=== PATIENT | female | born 1985 | race Caucasian/White ===

== ENCOUNTER 2016-08-16 18:27 | Emergency (ER) | payer MEDICAID ==
[~2016-08-16] VITALS: Ht 170.2 cm; Wt 75.0 kg
[2016-08-16 18:29] VITALS: BP 121/70; PULSE 72; RESP 20; TEMP 97.7; O2SAT 100
--- NOTE | 2016-08-16 19:07 | PD ---
HPI Chief Complaint: Facial Pain or Swelling Time Seen by Provider: 19:07 Travel History International Travel<30 days: No Contact w/Intl Traveler<30days: No Traveled to known affect area: No History of Present Illness HPI 30-year-old female who is approximately 19 weeks presents for evaluation of severe right sided facial pain with photophobia in her right eye. This started this morning and persisted throughout the day. She also reports weakness/tingling in her lower extremities. This has progressed throughout the day. Patient denies any nausea or vomiting. States she has had some sinus congestion throughout but that nothing like this. She has not had any fever or chills. She reports abdominal cramping but states she cramps sometimes. She denies a vaginal bleeding or discharge. States she hasn't really felt movement up to this point so she cannot reported decrease in movement accurately. She reports no other focal deficits or weakness. She has no other symptoms reported time. PFSH Past Medical History ?: LMP: MAR 2017 Social History Alcohol Use: No Tobacco Use: No Substance Use: No Allergies-Medications (Allergen,Severity, Reaction): Coded Allergies: No Known Allergies (Verified , 12/04/05) Reported Meds & Prescriptions Reported Meds & Active Scripts Active Review of Systems Except as stated in HPI: all other systems reviewed are Neg Physical Exam Narrative GENERAL: Well-nourished female patient, ambulatory with a nonantalgic gait, no acute distress SKIN: Warm and dry. HEAD: Atraumatic. Normocephalic. EYES: Pupils equal and round. No scleral icterus. No injection or drainage. 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 ENT: No nasal bleeding or discharge. Mucous membranes pink and moist. NECK: Trachea midline. No JVD. CARDIOVASCULAR: Regular rate and rhythm. No murmur appreciated. RESPIRATORY: No accessory muscle use. Clear to auscultation. Breath sounds equal bilaterally. GASTROINTESTINAL: Abdomen soft, non-tender, nondistended. Hepatic and splenic margins not palpable. MUSCULOSKELETAL: No obvious deformities. No clubbing. No cyanosis. No edema. NEUROLOGICAL: Awake and alert. No obvious cranial nerve deficits. Motor grossly within normal limits. Normal speech. PSYCHIATRIC: Appropriate mood and affect; insight and judgment normal. Data Data Last Documented VS Vital Signs Date Time Temp Pulse Resp B/P Pulse Ox O2 Delivery O2 Flow Rate FiO2 08/16/16 18:29 97.7 72 20 121/70 100 Room Air Orders Complete Blood Count With Diff (08/16/16 19:05) Comprehensive Metabolic Panel (08/16/16 19:05) Urinalysis - C+S If Indicated (08/16/16 19:05) Westergren Sedimentation Rate (08/16/16 19:05) Coag Profile (08/16/16 19:05) MDM Medical Decision Making Medical Screen Exam Complete: Yes Emergency Medical Condition: Yes Medical Record Reviewed: Yes Differential Diagnosis Jung's palsy versus sinus infection versus migraine headache versus temporal arteritis versus intracranial etiology Narrative Course 30-year-old female presents to emergency department for evaluation. Workup initiated in triage. Once medical bed becomes available, patient will be transferred and care assumed by that provider. Condition: Stable Johanna García Aug 16, 2016 19:07
[2016-08-16] MEDS ORDERED: SODIUM CHLOR 0.9% 1000 ML INJ 1,000 ML IV ONE (20:15)
[2016-08-16] MEDS ORDERED: CALNTAB PO (20:15)
[2016-08-16] MEDS ORDERED: ACETAMINOPHEN 325 MG TAB PO ONE (20:15)
[2016-08-16 20:51] LABS: BLOOD, URINE NEG (NEG); GLUCOSE,URINE NEG (NEG); KETONE, URINE NEG (NEG); NITRITE,URINE NEG (NEG); SQUAMOUS EPITHELIAL CELL URINE <1 /hpf (0-5); URINE COLOR LIGHT-YELLOW (YELLW/STRAW)
[2016-08-16 20:55] LABS: COMMENT (UR) CULT NOT INDICATED; CULTURE IF INDICATED CULT NOT INDICATED
[2016-08-16 21:03] LABS: ALT (GPT) 19 U/L (10-53); ANION GAP 9 MEQ/L (5-15); AST (GOT) 15 U/L (15-37); BICARBONATE 24.4 MEQ/L (21.0-32.0); BLOOD UREA NITROGEN 10 MG/DL (7-18); CHLORIDE 106 MEQ/L (98-107); GLOMERULAR FILTRATION RATE 102 ML/MIN (>89); SODIUM (NA) 139 MEQ/L (136-145)
[2016-08-16 21:06] LABS: ALKALINE PHOSPHATASE 49 U/L (45-117); TOTAL BILIRUBIN ADULT 0.2 MG/DL (0.2-1.0)
[2016-08-16 21:15] LABS: APTT (PATIENT) 24.9 SEC (24.3-30.1); INTERNATIONAL NORMALIZED RATIO 0.9 RATIO; PROTHROMBIN TIME - PATIENT 9.4 SEC (9.8-11.6)
[2016-08-16 21:19] LABS: BASOPHIL % 0.3 % (0.0-2.0); EOSINOPHIL # 0.1 TH/MM3 (0-0.4); EOSINOPHIL % 1.1 % (0.0-4.0); HEMO FLAGS DIFF FINAL; LYMPH % 18.7 % (9.0-44.0); LYMPHOCYTE # 1.8 TH/MM3 (1.0-4.8); MEAN CELL VOLUME 88.3 FL (80.0-100.0); MEAN CORPUSCULAR HEMOGLOBIN 29.9 PG (27.0-34.0); MEAN CORPUSCULAR HGB CONC 33.8 % (32.0-36.0); MONO % 6.1 % (0.0-8.0); NEUT % 73.8 % (16.0-70.0); PLATELET COUNT 192 TH/MM3 (150-450); RED BLOOD COUNT 3.96 MIL/MM3 (4.00-5.30); RED CELL DISTRIBUTION WIDTH 13.5 % (11.6-17.2); WHITE BLOOD COUNT 9.5 TH/MM3 (4.0-11.0)
[2016-08-16 21:55] VITALS: BP 111/55; PULSE 71; RESP 18; O2SAT 100
[2016-08-16] MEDS ORDERED: AMOXICILLIN 875 MG TAB PO ONE (22:00)
[2016-08-16] MEDS ORDERED: AMOX875T PO (22:07)
[2016-08-16] MEDS ORDERED: FLUT50SP EACH NARE (22:07)
--- NOTE | 2016-08-16 22:07 | PD ---
Physical Exam Narrative Patient originally seen in triage where work-up was begun. She is 20 weeks and comes in complaining of pain to the right side of her face. She complains of a lot of pain to her maxillary sinus area. She says she has pain opening her right eye, but she is able to. She has had nasal congestion throughout her , but says now it feels like the right nostril is clogged. She has not had any fever or chills. She is here on vacation and has been walking [place] the [employer]. She also complains of a tingling sensation in her legs. She has not had any back pain or incontinence or other urinary issues. Exam shows equal strength 5/5 in both legs, sensation intact. Pedal pulses intact. No saddle anesthesia. There are no neurologic abnormalities on exam. She is tender over the right maxillary sinus. Data Data Last Documented VS Vital Signs Date Time Temp Pulse Resp B/P Pulse Ox O2 Delivery O2 Flow Rate FiO2 08/16/16 21:55 71 18 111/55 100 Room Air 08/16/16 18:29 97.7 Orders Complete Blood Count With Diff (08/16/16 19:05) Comprehensive Metabolic Panel (08/16/16 19:05) Urinalysis - C+S If Indicated (08/16/16 19:05) Westergren Sedimentation Rate (08/16/16 19:05) Coag Profile (08/16/16 19:05) Sodium Chlor 0.9% 1000 Ml Inj (Ns 1000 M (08/16/16 20:15) Acetaminophen (Tylenol) (08/16/16 20:15) Amoxicillin (Trimox) (08/16/16 22:00) Labs Laboratory Tests Test 08/16/16 19:55 White Blood Count 9.5 TH/MM3 Red Blood Count 3.96 MIL/MM3 Hemoglobin 11.8 GM/DL Hematocrit 35.0 % Mean Corpuscular Volume 88.3 FL Mean Corpuscular Hemoglobin 29.9 PG Mean Corpuscular Hemoglobin 33.8 % Concent Red Cell Distribution Width 13.5 % Platelet Count 192 TH/MM3 Mean Platelet Volume 8.5 FL Neutrophils (%) (Auto) 73.8 % Lymphocytes (%) (Auto) 18.7 % Monocytes (%) (Auto) 6.1 % Eosinophils (%) (Auto) 1.1 % Basophils (%) (Auto) 0.3 % Neutrophils # (Auto) 7.0 TH/MM3 Lymphocytes # (Auto) 1.8 TH/MM3 Monocytes # (Auto) 0.6 TH/MM3 Eosinophils # (Auto) 0.1 TH/MM3 Basophils # (Auto) 0.0 TH/MM3 CBC Comment DIFF FINAL Differential Comment Erythrocyte Sedimentation Rate 17 mm/hr Prothrombin Time 9.4 SEC Prothromb Time International 0.9 RATIO Ratio Activated Partial 24.9 SEC Thromboplast Time Urine Color LIGHT-YELLOW Urine Turbidity CLEAR Urine pH 7.0 Urine Specific [place] 1.007 Urine Protein NEG mg/dL Urine Glucose (UA) NEG mg/dL Urine Ketones NEG mg/dL Urine Occult Blood NEG Urine Nitrite NEG Urine Bilirubin NEG Urine Urobilinogen LESS THAN 2.0 MG/DL Urine Leukocyte Esterase NEG Urine RBC LESS THAN 1 /hpf Urine WBC LESS THAN 1 /hpf Urine Squamous Epithelial <1 /hpf Cells Microscopic Urinalysis Comment CULT NOT INDICATED Sodium Level 139 MEQ/L Potassium Level 4.0 MEQ/L Chloride Level 106 MEQ/L Carbon Dioxide Level 24.4 MEQ/L Anion Gap 9 MEQ/L Blood Urea Nitrogen 10 MG/DL Creatinine 0.67 MG/DL Estimat Glomerular Filtration 102 ML/MIN Rate Random Glucose 99 MG/DL Calcium Level 8.7 MG/DL Total Bilirubin 0.2 MG/DL Aspartate Amino Transf 15 U/L (AST/SGOT) Alanine Aminotransferase 19 U/L (ALT/SGPT) Alkaline Phosphatase 49 U/L Total Protein 6.5 GM/DL Albumin 3.0 GM/DL MDM Supervised Visit with BENJAMIN: No Narrative Course BP is 120/70. Labs sent show no abnormalities. Patient given IVF and Tylenol. Patient offered CT but declines at this time due to . Advised this is likely sinusitis. Given prescriptions for Amoxicillin and Fluticasone. Advised to increase her water intake. Advised to return at any time for any worsening symptoms. Advised to follow up with her OB. Diagnosis Primary Impression: Sinusitis Qualified Code: J01.00 - Acute non-recurrent maxillary sinusitis Patient Instructions: General Instructions, Sinusitis (ED) Additional Instruction: Increase your fluid intake. Take Tylenol as needed for pain. You can try warm compresses for pain relief as well. Take all of your antibiotics and use the nasal spray. Follow up with your OB. Return to the ED at any time for any worsening symptoms. Scripts Fluticasone Nasal [place] 50 Mcg/Act [id number] Mcg EACH NARE BID #1 BOTTLE Ref 0 50 mcg/spray Prov:Kate Fuentes MD 08/16/16 Amoxicillin 875 Mg [id number] Mg PO BID 7 Days Ref 0 Prov:Kate Fuentes MD 08/16/16 Disposition: 01 DISCHARGE HOME Condition: Stable Kate Fuentes MD Aug 16, 2016 22:07
== END 2016-08-16 22:23 | disposition home or self-care (01) ==
LOC: NETRI 18:27 → NEPC 22:23
DX: O98.812 Other maternal infectious and parasitic diseases complicating pregnancy, second trimester (principal); J01.00 Acute maxillary sinusitis, unspecified; R10.9 Unspecified abdominal pain; Z3A.19 19 weeks gestation of pregnancy
CPT/HCPCS: 80053; 81001; 85025; 85610; 85652; 85730; 99283; J7030